=== PATIENT | female | born 1960 | race Caucasian/White ===

== ENCOUNTER 2019-07-28 22:07 | Emergency (ER) | payer BC ==
[~2019-07-28] VITALS: Ht 157.5 cm; Wt 83.9 kg
--- NOTE | 2019-07-28 22:20 | PHYS DOC ---
Past Medical History Past Medical History: Bronchitis, Other Additional Past Medical Histor: Sepsis w/hyster.-"used wand and it blew throught the back of my uterus." Past Surgical History: Hysterectomy, Other Additional Past Surgical Histo: Skin CA L)chest. Additional Information: Nonsmoker Alcohol Use: Occasionally Drug Use: None Adult General Chief Complaint Chief Complaint: CHEST PAIN HPI HPI 58-year-old female presents with report of left-sided back pain with radiation to chest which has been ongoing today. Reports chronic thoracic back pain which she attributes to a "rib being displaced ". Denies recent trauma. Denies cough. Denies fever or chills. Reports the pain became worse with some associated dizziness and shortness of air. Patient also reports some "indigestion". Denies leg swelling or calf tenderness. Cardiac risk factors of family history. Denies history or family history of DVT/PE Review of Systems Review of Systems Constitutional: Denies fever or chills Eyes: Denies redness or eye pain HENT: Denies nasal congestion or sore throat Respiratory: Denies cough or shortness of breath Cardiovascular: Reports chest pain; denies palpitations GI: Denies abdominal pain, nausea, or vomiting : Denies dysuria or hematuria Musculoskeletal: Reports thoracic back pain; denies joint pain Integument: Denies rash or skin lesions Neurologic: Denies headache, focal weakness or sensory changes Complete systems were reviewed and found to be within normal limits, except as documented in this note. Current Medications Current Medications Current Medications Medications (Trade) Dose Ordered Sig/[facility] Start Time Stop Time Status Last Admin Dose Admin Aspirin (Nati Aspirin) 325 mg 1X ONCE 07/28/19 23:00 07/28/19 23:01 DC 07/28/19 22:40 325 MG Famotidine (Pepcid Vial) 20 mg 1X ONCE 07/28/19 23:00 07/28/19 23:01 DC 07/28/19 22:51 20 MG Orphenadrine Citrate (Norflex) 60 mg 1X ONCE 07/28/19 23:00 07/28/19 23:01 DC 07/28/19 22:51 60 MG Sodium Chloride 1,000 ml @ 1,000 mls/hr 1X ONCE 07/28/19 23:00 07/28/19 23:59 DC 07/28/19 22:40 1,000 MLS/HR Allergies Allergies Allergies Coded Allergies Type Severity Reaction Last Updated Verified codeine Adverse Reaction Intermediate Nausea and Vomiting 04/22/15 Yes egg Adverse Reaction Intermediate Nausea and Vomiting 04/22/15 Yes Physical Exam Physical Exam Constitutional: Well developed, well nourished, no acute distress, non-toxic appearance HENT: Normocephalic, atraumatic, oropharynx moist Eyes: Conjunctiva normal, no discharge Neck: Normal range of motion, no tenderness, supple Cardiovascular: Heart rate normal, regular rhythm Lungs & Thorax: Bilateral breath sounds clear to auscultation, no wheezing Abdomen: Soft, no tenderness Skin: Warm, dry, no erythema, no rash Back: Left mid thoracic paraspinal tenderness- reproduces pain, no CVA tenderness Extremities: No tenderness, ROM intact, no edema Neurologic: Alert and oriented X 3, no focal deficits noted Psychologic: Affect normal, judgement normal Current Patient Data Vital Signs Vital Signs Date Time Temp Pulse Resp B/P (MAP) Pulse Ox O2 Delivery O2 Flow Rate FiO2 07/28/19 22:07 97.6 93 14 178/90 (119) 97 Room Air 97.6 Lab Values Laboratory Tests Test 07/28/19 22:18 07/28/19 23:45 White Blood Count 7.7 x10^3/uL (4.0-11.0) Red Blood Count 4.49 x10^6/uL (3.50-5.40) Hemoglobin 13.9 g/dL (12.0-15.5) Hematocrit 41.5 % (36.0-47.0) Mean Corpuscular Volume 93 fL (79-100) Mean Corpuscular Hemoglobin 31 pg (25-35) Mean Corpuscular Hemoglobin Concent 34 g/dL (31-37) Red Cell Distribution Width 12.9 % (11.5-14.5) Platelet Count 190 x10^3/uL (140-400) Neutrophils (%) (Auto) 54 % (31-73) Lymphocytes (%) (Auto) 37 % (24-48) Monocytes (%) (Auto) 7 % (0-9) Eosinophils (%) (Auto) 2 % (0-3) Basophils (%) (Auto) 1 % (0-3) Neutrophils # (Auto) 4.2 x10^3/uL (1.8-7.7) Lymphocytes # (Auto) 2.8 x10^3/uL (1.0-4.8) Monocytes # (Auto) 0.5 x10^3/uL (0.0-1.1) Eosinophils # (Auto) 0.1 x10^3/uL (0.0-0.7) Basophils # (Auto) 0.1 x10^3/uL (0.0-0.2) Prothrombin Time 13.1 SEC (11.7-14.0) Prothrombin Time INR 1.0 (0.8-1.1) Activated Partial Thromboplast Time 30 SEC (24-38) D-Dimer (Renetta) < 0.27 ug/mlFEU Sodium Level 145 mmol/L (136-145) Potassium Level 3.6 mmol/L (3.5-5.1) Chloride Level 106 mmol/L (98-107) Carbon Dioxide Level 28 mmol/L (21-32) Anion Gap 11 (6-14) Blood Urea Nitrogen 20 mg/dL (7-20) Creatinine 0.9 mg/dL (0.6-1.0) Estimated GFR (Cockcroft-Gault) 64.8 BUN/Creatinine Ratio 22 (6-20) H Glucose Level 105 mg/dL (70-99) H Calcium Level 9.0 mg/dL (8.5-10.1) Magnesium Level 1.8 mg/dL (1.8-2.4) Total Bilirubin 0.3 mg/dL (0.2-1.0) Aspartate Amino Transferase (AST) 14 U/L (15-37) L Alanine Aminotransferase (ALT) 17 U/L (14-59) Alkaline Phosphatase 83 U/L (46-116) Creatine Kinase 52 U/L (26-192) Creatine Kinase MB (Mass) < 0.5 ng/mL (0.0-3.6) Creatine Kinase MB Relative Index % (0-4) Troponin I Quantitative < 0.017 ng/mL (0.000-0.055) < 0.017 ng/mL (0.000-0.055) PC-Dcl-H-Type Natriuretic Peptide 44 pg/mL (0-124) Total Protein 7.4 g/dL (6.4-8.2) Albumin 3.7 g/dL (3.4-5.0) Albumin/Globulin Ratio 1.0 (1.0-1.7) Lipase 239 U/L (73-393) Laboratory Tests 07/28/19 22:18 Laboratory Tests 07/28/19 22:18 EKG EKG @2213 NSR at 84bpm, NO ST elevation, QRS 86ms, QT/QTc 354/421ms Radiology/Procedures Radiology/Procedures PROCEDURE: CHEST PA & LATERAL PROCEDURE: CHEST PA LATERAL CLINICAL INDICATION: Chest pain. COMPARISON: None FINDINGS: No pneumothorax identified. Cardiac and mediastinal contours unremarkable. No pulmonary consolidation or acute airspace disease. No acute osseous abnormalities identified. IMPRESSION: No pulmonary consolidation or acute airspace disease. Electronically signed by: Pablo Bennett DO (07/28/2019 11:48 PM) [facility] Course & Med Decision Making Course & Med Decision Making Pertinent Labs and Imaging studies reviewed. (See chart for details) Patient presents with atypical chest pain and paraspinal thoracic back pain. Symptomatic treatment provided. Low cardiac risk factors. EKG stable. Labs obtained and posted to chart. Troponin 2 negative. D-dimer negative. Chest x- ray without acute process. HEART score 2. Patient stable for discharge with outpatient follow-up with PCP/GI/pain specia list. GI and pain specialist referrals provided. Discussed findings and plan with patient and family, who acknowledge understanding and agreement. Dragon Disclaimer Dragon Disclaimer This electronic medical record was generated, in whole or in part, using a voice recognition dictation system. Departure Departure Impression: Primary Impression: Atypical chest pain Additional Impression: Thoracic back pain Disposition: HOME, SELF-CARE Condition: STABLE Referrals: NON,STAFF (PCP) SRINI LANTIGUA MD, SCOTT S MD Patient Instructions: Back Pain, Adult, [id number], Chest Pain (Nonspecific), [id number] Scripts Orphenadrine Citrate (ORPHENADRINE CITRATE) 100 Mg Tablet.er 1 TAB PO BID PRN for MUSCLE PAIN, #14 TAB Prov: NITHYA MACE DO 07/28/19 Famotidine (PEPCID) 20 Mg Tablet 20 MG PO HS, #14 TAB Prov: NITHYA MACE DO 07/28/19 The HEART Score for CP Pts HEART Score for Chest Pain: HEART Score for Chest Pain Response (Comments) Value History Slighlty/Non-Suspicious 0 ECG Normal 0 Age >45 - < 65 1 Risk Factors 1 or 2 Risk Factors 1 Troponin < Normal Limit 0 Total 2 Risk Factors: Risk Factors: DM, Current or recent (<one month) smoker, HTN, HLP, family history of CAD, obesity. Risk Scores: Score 0 - 3: 2.5% MACE over next 6 weeks - Discharge Home Score 4 - 6: 20.3% MACE over next 6 weeks - Admit for Clinical Observation Score 7 - 10: 72.7% MACE over next 6 weeks - Early Invasive Strategies Problem Qualifiers Additional Impression: Thoracic back pain Chronicity: acute Back pain laterality: left Qualified Codes: M54.6 - Pain in thoracic spine NITHYA MACE DO Jul 28, 2019 22:20
[2019-07-28 22:28] LABS: BASO # 0.1 x10^3/uL (0.0-0.2); BASO % 1 % (0-3); EOS # 0.1 x10^3/uL (0.0-0.7); EOS % 2 % (0-3); HEMATOCRIT 41.5 % (36.0-47.0); HEMOGLOBIN 13.9 g/dL (12.0-15.5); LYMPH # 2.8 x10^3/uL (1.0-4.8); LYMPH % 37 % (24-48); MEAN CORPUSCULAR HEMOGLOBIN 31 pg (25-35); MEAN CORPUSCULAR HGB CONC 34 g/dL (31-37); MEAN CORPUSCULAR VOLUME 93 fL (79-100); MONO # 0.5 x10^3/uL (0.0-1.1); MONO % 7 % (0-9); NEUT # 4.2 x10^3/uL (1.8-7.7); NEUT % 54 % (31-73); PLATELET COUNT 190 x10^3/uL (140-400); RED BLOOD COUNT 4.49 x10^6/uL (3.50-5.40); RED CELL DISTRIBUTION WIDTH 12.9 % (11.5-14.5); WHITE BLOOD COUNT 7.7 x10^3/uL (4.0-11.0)
[2019-07-28 22:35] LABS: CREATININE 0.9 mg/dL (0.6-1.0); GFR 64.8; POTASSIUM 3.6 mmol/L (3.5-5.1)
[2019-07-28 22:37] LABS: PROTHROMBIN TIME PATIENT 13.1 SEC (11.7-14.0)
[2019-07-28 22:38] LABS: PARTIAL THROMBOPLASTIN TIME 30 SEC (24-38)
[2019-07-28 22:42] LABS: ALBUMIN 3.7 g/dL (3.4-5.0); MAGNESIUM 1.8 mg/dL (1.8-2.4); TOTAL BILIRUBIN 0.3 mg/dL (0.2-1.0); TOTAL PROTEIN 7.4 g/dL (6.4-8.2)
[2019-07-28 22:50] LABS: CREATINE KINASE 52 U/L (26-192)
[2019-07-28 22:59] LABS: D-DIMER < 0.27 ug/mlFEU (0.00-0.50)
[2019-07-28] MEDS ORDERED: IV NORMAL SALINE 1000ML BAG 1,000 ML IV ONE (23:00)
[2019-07-28] MEDS ORDERED: FAMOTIDINE 20 MG/2 ML VIAL IVP ONE (23:00)
[2019-07-28] MEDS ORDERED: ASPIRIN 325 MG TABLET PO ONE (23:00)
[2019-07-28] MEDS ORDERED: ORPHENADRINE CITRATE 60 MG/2 ML VIAL. IV ONE (23:00)
[2019-07-28] MEDS ORDERED: ORPH100T PO (23:22)
[2019-07-28] MEDS ORDERED: FAMO-63 PO (23:22)
--- NOTE | 2019-07-28 23:51 | RAD ---
PROCEDURE: CHEST PA LATERAL CLINICAL INDICATION: Chest pain. COMPARISON: None FINDINGS: No pneumothorax identified. Cardiac and mediastinal contours unremarkable. No pulmonary consolidation or acute airspace disease. No acute osseous abnormalities identified. IMPRESSION: No pulmonary consolidation or acute airspace disease. Electronically signed by: Pablo Bennett DO (07/28/2019 11:48 PM) [facility]
[2019-07-29 00:30] VITALS: BP 120/75
--- NOTE | 2019-07-30 13:40 | EKG ---
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
== END 2019-07-29 00:51 | disposition home or self-care (01) ==
LOC: ER 22:07
DX: R07.89 Other chest pain (principal); M54.6 Pain in thoracic spine; G89.29 Other chronic pain; R42 Dizziness and giddiness; Z88.5 Allergy status to narcotic agent; Z91.012 Allergy to eggs
CPT/HCPCS: 36415; 71046; 80053; 82553; 83690; 83735; 83880; 84484; 85025; 85379; 85610; 85730; 93005; 96374; 96375; 99285; J2360; J3490; J7030